=== PATIENT | female | born 1960 | race Caucasian/White ===

== ENCOUNTER 2016-12-13 16:11 | Emergency (ER) | payer BC ==
[~2016-12-13 16:11] MED LIST: ACTOS15 MG PO; ALLEGRA180 MG PO; ALLEGRA30 MG; ALPRAZOLAM0.5 MG PO; ALTACE2.5 MG PO; ASPIRIN325 MG; ASPIRIN81 MG PO; ATACAND16 MG; ATENOLOL25 M1 PO; ATENOLOL25 MG PO; ATIVAN0.5 MG PO; ATIVAN1 MG; ATORVASTATIN CA40 MG PO; CELEBREX200 MG PO; CELEBREX50 MG PO; COLACE100 M1 PO; COMPAZINE10 MG PO; COMPAZINE25 M1 RC; DALMANE15 MG PO; DAPAGLIFLOZIN PO; DARVOCET-N 1001 TAB PO; ELAVIL25 MG PO; FAMOTIDINE20 MG PO; FISH OIL 1,001000 M1 PO; FISH OIL 11000 MG/CA PO; FLUOXETINE HCL40 MG PO; FLURAZEPAM15 MG PO; HYDROCODON-ACE1 EA16 PO; HYOMAX PO; IMDUR30 M1 PO; ISORDIL30 MG PO; KEFLEX500 MG; LAMOTRIGINE25 M1 PO; LANTUS100 U/ML SC; LEVBID0.375 MG PO; LIPITOR80 MG PO; LIPTRUZET PO; LOMOTIL 2.5-0.1 EACH PO; LOMOTIL1 TAB PO; LORTAB 5/500 TA1 TAB PO; METFORMIN HCL1000 M1 PO; METFORMIN HCL500 PO; METOCLOPRAMIDE H5 MG PO; NEURONTIN300 M1 PO; NIASPAN500 MG PO; NITRO-DUR1 P TD; NITROGLYCERIN0.4 MG SL; NORTRIPTYLINE H50 M1 PO; NORVASC2.5 MG PO; NORVASC5 M1 PO; NORVASC5 MG; NOVOLOG FL100 UNIT/1 SQ; NOVOLOG MIX 70/10 ML SQ; OMEGA 3 FISH1 CAP.EC; OMEGA 31 CAP; PAXIL40 MG PO; PERCOCET 5-3251 EACH PO; PERCOCET 5/3251 TAB PO; PERCOCET 5MG/AP1 TA2 PO; PHENERGAN25 MG/TAB PO; PLAVIX75 MG PO; PRALUENT P150 MG/1 M SC; PROTONIX40 MG PO; RANEXA1000 MG PO; SINGULAIR10 M1 PO; SKELAXIN800 M1 PO; SPIRONOLACTONE25 MG PO; SUCRALFATE1 G PO; SYMAX DUOT0.375 MG/B PO; TRAZODONE HCL100 M1 PO; TRIGLIDE160 MG PO; TROUJEO SC; TYLENOL ARTHRI650 M1 PO; ULTRAM50 MG PO; VICTOZA 2-0.6 MG/0.1 SC; VICTOZA0.6 MG/0.1 SQ; VITAMIN D31000 UNI3 PO; VYTORIN 10/40 T1 TAB; VYTORIN 10/80 T1 TAB PO; XANAX0.5 MG PO; ZETIA10 MG; ZETIA10 MG PO; ZOCOR10 MG; ZOCOR40 MG; ZOCOR80 MG; ZOFRAN8 M1 PO; ZYRTEC; ZYRTEC10 M1 PO; ZYRTEC10 M4 PO
[2016-12-13] MEDS ORDERED: PERCOCET 5-3251 EACH PO (19:37)
== END 2016-12-13 19:51 ==
LOC: EDMED 16:11
DX: S09.90XA Unspecified injury of head, initial encounter (principal); S40.022A Contusion of left upper arm, initial encounter; S40.021A Contusion of right upper arm, initial encounter; I10 Essential (primary) hypertension; R07.81 Pleurodynia; I25.10 Atherosclerotic heart disease of native coronary artery without angina pectoris; E11.9 Type 2 diabetes mellitus without complications; Z79.4 Long term (current) use of insulin; Z87.442 Personal history of urinary calculi; W18.09XA Striking against other object with subsequent fall, initial encounter; Y92.512 Supermarket, store or market as the place of occurrence of the external cause
CPT/HCPCS: J1170; J2405